=== PATIENT | male | born 1995 | race Caucasian/White ===

== ENCOUNTER 2017-09-12 10:16 | Emergency (ER) | payer BC ==
[2017-09-12 13:36] VITALS: BP 133/69
--- NOTE | 2017-09-12 13:51 | UC ---
Throat Pain/Nasal Tonio HPI - HPI Summary HPI Summary: Patient has had cough and sore throat, sinus congestion and tightness in chest for the past week. he is retuning to [id number]. - History of Current Complaint Chief Complaint: UCRespiratory Stated Complaint: COUGH Time Seen by Provider: 09/12/17 13:31 Hx Obtained From: Patient Onset/Duration: Sudden Onset, Lasting Weeks Severity: Mild Associated Signs & Symptoms: Positive: Dysphagia, Wheezing, Sinus Discomfort - Allergies/Home Medications Allergies/Adverse Reactions: Allergies Allergy/AdvReac Type Severity Reaction Status Date / Time No Known Allergies Allergy Verified 10/05/14 16:35 Home Medications: Home Medications [id number] [Theraflu Cold & Cough] 1 percy PO 09/12/17 [History] Pseudoephedrine-Guaifenesin [Mucinex D 60-600 mg] 1 tab PO 09/12/17 [History] PMH/Surg Hx/FS Hx/Imm Hx Previously Healthy: Yes - Surgical History Surgical History: None - Family History Known Family History: Positive: Hypertension - Social History Alcohol Use: Occasionally Substance Use Type: None Smoking Status (MU): Never Smoked Tobacco - Immunization History Most Recent Influenza Vaccination: NOT IN 2013 Review of Systems Constitutional: Fatigue Skin: Negative Eyes: Negative ENT: Sore Throat, Ear Ache, Nasal Discharge, Sinus Congestion, Sinus Pain/ Tenderness Respiratory: Shortness Of Breath, Cough Cardiovascular: Negative Gastrointestinal: Negative Genitourinary: Negative Motor: Negative Neurovascular: Negative Musculoskeletal: Negative Neurological: Headache Psychological: Negative Is Patient Immunocompromised?: No All Other Systems Reviewed And Are Negative: Yes Physical Exam Triage Information Reviewed: Yes Appearance: Well-Nourished, Ill-Appearing, Pain Distress Vital Signs: Initial Vital Signs Temp 98.2 F 09/12/17 13:32 Pulse 63 09/12/17 13:32 Resp 18 09/12/17 13:32 BP 133/69 09/12/17 13:32 Pulse Ox 99 09/12/17 13:32 Vital Signs Reviewed: Yes Eye Exam: Normal ENT: Positive: Pharyngeal erythema, Nasal congestion Dental Exam: Normal Neck exam: Normal Neck: Positive: Supple, Nontender, No Lymphadenopathy Respiratory Exam: Normal Respiratory: Positive: Chest non-tender, Lungs clear, Normal breath sounds Cardiovascular Exam: Normal Cardiovascular: Positive: RRR, No Murmur, Pulses Normal Abdominal Exam: Normal Abdomen Description: Positive: Nontender, No Organomegaly, Soft Bowel Sounds: Positive: Present Musculoskeletal Exam: Normal Musculoskeletal: Positive: Strength Intact, ROM Intact, No Edema Neurological Exam: Normal Neurological: Positive: Alert, Muscle Tone Normal Psychological Exam: Normal Skin Exam: Normal Throat Pain/Nasal Course/Dx - Course Course Of Treatment: hx obtained, exam performed ,meds reviewed, treated for sinusitis and bronchospasm - Differential Dx/Diagnosis Differential Diagnosis/HQI/PQRI: Otitis Media, Pharyngitis, Sinusitis, URI Provider Diagnoses: sinusitis and bronchospasm Discharge - Discharge Plan Condition: Stable Disposition: HOME Prescriptions: Albuterol HFA INHALER* [Ventolin HFA Inhaler*] 2 puff INH Q4H PRN #1 mdi PRN Reason: Sob/Wheezing Amoxicillin PO (*) [Amoxicillin 875 MG (*)] 875 mg PO BID #20 tab predniSONE TAB* [Deltasone TAB*] 40 mg PO DAILY #14 tab Patient Education Materials: Sinusitis (ED), Bronchospasm (ED) Referrals: Thad Peraza [Primary Care Provider] -
== END 2017-09-12 14:00 | disposition home or self-care (01) ==
LOC: UCCORT 10:16
DX: J32.9 Chronic sinusitis, unspecified (principal); J98.01 Acute bronchospasm
CPT/HCPCS: 99212; G0463

== ENCOUNTER 2019-02-02 13:03 | Emergency (ER) | payer BC ==
[2019-02-02 13:21] VITALS: BP 136/63
--- NOTE | 2019-02-02 13:37 | UC ---
Lower Extremity/Ankle HPI - HPI Summary HPI Summary: 23-year-old male complaining of right foot pain. The end of December he ran in a marathon and started expressing some right foot pain just below the right ankle. , on January 21 he ran a half marathon, he complained of continued right foot pain with some swelling. He played some sports yesterday and contacted his sports physician who suggested he come here and get an x-ray today. Denies any specific injury to the foot other than the excessive running. - History of Current Complaint Chief Complaint: UCLowerExtremity Stated Complaint: RIGHT FOOT INJURY Time Seen by Provider: 02/02/19 13:18 Hx Obtained From: Patient Onset/Duration: Gradual Onset Severity Initially: Mild Severity Currently: Mild Pain Intensity: 4 Aggravating Factor(s): Ambulation Alleviating Factor(s): Rest Able to Bear Weight: Yes - Risk Factors Gout Risk Factors: Negative DVT Risk Factors: Negative Septic Arthritis Risk Factor: Negative - Allergies/Home Medications Allergies/Adverse Reactions: Allergies Allergy/AdvReac Type Severity Reaction Status Date / Time No Known Allergies Allergy Verified 02/02/19 13:20 Home Medications: Home Medications Ibuprofen 600 mg PO ONCE PRN 02/02/19 [History Confirmed 02/02/19] PMH/Surg Hx/FS Hx/Imm Hx Previously Healthy: Yes - Surgical History Surgical History: None - Family History Known Family History: Positive: Hypertension - Social History Alcohol Use: Occasionally Substance Use Type: None Smoking Status (MU): Never Smoked Tobacco - Immunization History Most Recent Influenza Vaccination: NOT IN 2013 Review of Systems All Other Systems Reviewed And Are Negative: Yes Motor: Positive: Negative Neurovascular: Positive: Negative Musculoskeletal: Positive: Other: - Normal range of motion however does have some swelling and tenderness just below the right ankle but not involving the ankle. Is Patient Immunocompromised?: No Physical Exam Triage Information Reviewed: Yes Appearance: Well-Appearing, No Pain Distress, Well-Nourished Vital Signs: Initial Vital Signs Temp 98.1 F 02/02/19 13:17 Pulse 56 02/02/19 13:17 Resp 15 02/02/19 13:17 BP 136/63 02/02/19 13:17 Pulse Ox 100 02/02/19 13:17 Vital Signs Reviewed: Yes Musculoskeletal: Positive: Strength Intact, ROM Intact, Other: - Peripheral pulses, neuro sensation, capillary refill, Achilles is intact, base of the first and fifth metatarsal's nontender. There is mild swelling to the proximal foot not involving the ankle. The ankle itself is nontender. No deformity is noted. Neurological Exam: Normal Neurological: Positive: Alert, Muscle Tone Normal Lower Extremity Course/Dx - Course Course Of Treatment: Ambulates without difficulty. X-ray: negative. - Differential Dx/Diagnosis Provider Diagnosis: Foot sprain Discharge - Sign-Out/Discharge Documenting (check all that apply): Patient Departure All imaging exams completed and their final reports reviewed: Yes - Discharge Plan Condition: Good Disposition: HOME Patient Education Materials: Foot Sprain (ED) Referrals: Thad Peraza [Primary Care Provider] - Additional Instructions: Ice and elevate as much as possible. No sports, marathons or any other excessive running or walking over the next week. Follow-up with your sports equipment supervisor on Wednesday and let him take a look at the x-ray as well. - Billing Disposition and Condition Condition: GOOD Disposition: Home
== END 2019-02-02 14:01 | disposition home or self-care (01) ==
LOC: UCCORT 13:03
DX: S93.601A Unspecified sprain of right foot, initial encounter (principal); X58.XXXA Exposure to other specified factors, initial encounter; Y92.9 Unspecified place or not applicable
CPT/HCPCS: 99211; G0463

== ENCOUNTER 2019-05-21 10:52 | Emergency (ER) | payer BC ==
[2019-05-21 11:55] VITALS: BP 127/67
--- NOTE | 2019-05-21 12:00 | UC ---
Back Pain HPI - HPI Summary HPI Summary: 24 yo male presents with low back pain. He tells me that he has been in the process of moving to a new apartment and has been sleeping on friend's couches and floors as well as doing a lot of heavy lifting. Yesterday he drove a few hours back home and he noticed the pain increase after this prolonged sitting. He has been taking tylenol and ibuprofen for his discomfort with mild relief. Also applying heat and ice with little relief. Denies specific injury, numbness , tingling, saddle anesthesia, dysuria, hematuria, radiation of pain, or loss of bowel/bladder control. - History of Current Complaint Chief Complaint: UCBackPain Stated Complaint: BACK INJURY Time Seen by Provider: 05/21/19 11:59 Hx Obtained From: Patient Onset/Duration: Sudden Onset Severity Initially: Mild Severity Currently: Moderate Pain Intensity: 5 Pain Scale Used: 0-10 Numeric - Allergies/Home Medications Allergies/Adverse Reactions: Allergies Allergy/AdvReac Type Severity Reaction Status Date / Time No Known Allergies Allergy Verified 05/21/19 11:52 Home Medications: Home Medications Acetaminophen [Tylenol Extra Strength] 1,000 ml PO ONCE PRN 05/21/19 [History Confirmed 05/21/19] PMH/Surg Hx/FS Hx/Imm Hx - Additional Past Medical History Additional PMH: None - Surgical History Surgical History: None Surgery Procedure, Year, and Place: DENIES - Family History Known Family History: Positive: Hypertension - Social History Lives: With Family Alcohol Use: Occasionally Substance Use Type: None Smoking Status (MU): Never Smoked Tobacco - Immunization History Most Recent Influenza Vaccination: NOT IN 2013 Review of Systems All Other Systems Reviewed And Are Negative: Yes Constitutional: Positive: Negative Skin: Positive: Negative Respiratory: Positive: Negative Cardiovascular: Positive: Negative Gastrointestinal: Positive: Negative Neurovascular: Positive: Negative Musculoskeletal: Positive: Other: - Back pain Neurological: Positive: Negative Physical Exam - Summary Physical Exam Summary: GENERAL: NAD. WDWN. No pain distress. SKIN: No rashes, sores, lesions, or open wounds. NECK: Supple. FROM. Nontender. No lymphadenopathy. CHEST: CTAB. No r/r/w. No accessory muscle use. Breathing comfortably and in no distress. CV: RRR. Without m/r/g. Pulses intact. Cap refill <2seconds MSK: TTP over RIGHT lumbar paraspinal muscles and SI. Pain with flexion and extension of spine. Positive SLR RIGHT for low back pain without radiation. Strength 5/5 B/L LEs including dorsiflexion and plantar flexion. FROM B/L LEs. No edema. NEURO: Alert. Sensations intact B/L LEs L3-S1. Reflexes intact PSYCH: Age appropriate behavior. Triage Information Reviewed: Yes Vital Signs: Initial Vital Signs Temp 97.9 F 05/21/19 11:49 Pulse 53 05/21/19 11:49 Resp 14 05/21/19 11:49 BP 127/67 05/21/19 11:49 Pulse Ox 100 05/21/19 11:49 Vital Signs Reviewed: Yes Back Pain Course/Dx - Course Course Of Treatment: Suspect sciatica vs muscle spasm. In the clinic he was given toradol IM for his discomfort. Will rx for naproxen and flexeril for his discomfort. Advised to continue gentle stretching and heat. - Differential Dx/Diagnosis Provider Diagnosis: Muscle spasm Discharge - Sign-Out/Discharge Documenting (check all that apply): Patient Departure All imaging exams completed and their final reports reviewed: No Studies - Discharge Plan Condition: Stable Disposition: HOME Prescriptions: Cyclobenzaprine TAB* [Flexeril 10 MG TAB*] 10 mg PO BID PRN #14 tab PRN Reason: Pain - Moderate Naproxen [Naproxen 500 mg tab] 500 mg PO BID PRN #30 tablet. PRN Reason: Pain - Moderate Patient Education Materials: Sciatica (ED), Muscle Spasm (ED), Lower Back Exercises (ED) Referrals: Anita Masters NP [Primary Care Provider] - Additional Instructions: If you develop a fever, shortness of breath, chest pain, new or worsening symptoms - please call your PCP or go to the ED immediately. - Billing Disposition and Condition Condition: STABLE Disposition: Home
[2019-05-21] MEDS ORDERED: Ketorolac *IM* INJ* 60 MG/2 ML VIAL IM ONE (12:07)
== END 2019-05-21 12:37 | disposition home or self-care (01) ==
LOC: UCCORT 10:52
DX: M62.830 Muscle spasm of back (principal)
CPT/HCPCS: 96372; 99212; G0463; J1885